=== PATIENT | female | born 2000 | race African-American/Black ===

== ENCOUNTER 2023-06-16 04:57 | Emergency (ER) | payer BC ==
[2023-06-16 05:19] LABS: Bacteria/HPF None Seen HPF (None Seen); Bilirubin Negative (Negative); Blood, Urine Negative (Negative); CAUTI Indications for Culture Dysuria,urgency,freq; Clarity Clear (Clear); Glucose, Urine (Dipstick) Normal (Negative); Ketone, Urine Trace mg/dL (Negative); Leukocyte 75 Leu/uL (Negative); Nitrite Negative (Negative); Protein, Urine (Dipstick) Negative (Neg-Trace); RBC/HPF 0-3 HPF (0-3); Specific Gravity, Urine 1.024 (1.002-1.036); Urobilinogen Normal mg/dL (Less than 2); WBC/HPF 0-3 HPF (0-3); pH, Urine 6.5 (5.0-9.0)
[2023-06-16 05:21] LABS: Pregnancy Test - Urine (BHCG) Negative (Negative); Pregu Control Background? CLEAR/WHITE (CLR/WHITE); Pregu Control Bar Appear? YES (CONTROL BAR); Specific Gravity 1.004 (1.002-1.036); Urine Culture Reflex No No
[2023-06-16] MEDS ORDERED: Ondansetron PF 4 MG/2 ML Vial ONE (05:44)
[2023-06-16 06:48] LABS: SARS-CoV-2 NAA Rapid Test Not Detected (NotDetected)
== END 2023-06-16 07:29 | disposition home or self-care (01) ==
LOC: ERS 04:57
DX: R11.2 Nausea with vomiting, unspecified (principal); T50.6X5A Adverse effect of antidotes and chelating agents, initial encounter
CPT/HCPCS: 81001; 81025; 96361; 96374; J2405